=== PATIENT | female | born 1975 | race Caucasian/White ===

== ENCOUNTER 2017-04-18 21:33 | Emergency (ER) | payer BC ==
[~2017-04-18] VITALS: Ht 160 cm; Wt 49.3 kg
[2017-04-18 22:02] VITALS: BP 133/89
[2017-04-18] MEDS ORDERED: NORCO 7.5/321 TABLET PO (22:57)
[2017-04-18] MEDS ORDERED: MOTRIN800 MG PO (22:57)
[2017-04-18] MEDS ORDERED: AUGMENTIN875 MG PO (22:57)
== END 2017-04-18 23:27 | disposition home or self-care (01) ==
LOC: EME 21:33
DX: S61.551A Open bite of right wrist, initial encounter (principal); W55.01XA Bitten by cat, initial encounter; Z88.2 Allergy status to sulfonamides
CPT/HCPCS: 99281; 99284; J1335